=== PATIENT | male | born 1970 | race African-American/Black ===

== ENCOUNTER 2022-10-30 14:28 | Inpatient (IN) | payer MEDICAID, OTHER ==
[~2022-10-30] VITALS: Ht 177.8 cm; Wt 99.3 kg
[2022-10-30] MEDS ORDERED: INSULIN LISPRO (HUMAN) 100 UNITS/ML ML SC ONE (15:00)
[2022-10-30] MEDS ORDERED: CLOPIDOGREL BISULFATE 75 MG TAB PO ONE (15:15)
[2022-10-30 15:20] LABS: Basophils # (auto) 0 10 ^3/uL (0-0.2); Basophils % (auto) 0.6 % (0.0-2.0); Eosinophils # (auto) 0.1 10 ^3/uL (0-0.8); Eosinophils % (auto) 1.5 % (0.0-7.0); Hematocrit 40.1 % (41.0-53.0); Lymphocytes # (auto) 1.8 10 ^3/uL (0.4-5.4); Mean Corpuscular Hemoglobin 28.1 pg (28.0-32.0); Mean Corpuscular Hgb Conc. 34.9 g/dL (32.0-36.0); Mean Corpuscular Volume 80.6 fL (80.0-100.0); Monocytes # (auto) 0.5 10 ^3/uL (0-1.3); Monocytes % (auto) 8.4 % (0.0-12.0); Neutrophils # (auto) 3.9 10 ^3/uL (1.6-8.6); Neutrophils % (auto) 61.5 % (37.0-80.0); Nucleated Red Blood Cells % 0.1 %; Red Blood Cells 4.97 10^6/uL (4.5-5.90); Red Cell Distribution Width 12.4 % (11.8-14.3); White Blood Cell 6.4 10^3/uL (4.4-10.8)
[2022-10-30] MEDS ORDERED: ACETAMINOPHEN 325 MG TAB PO PRN (16:30)
[2022-10-30] MEDS ORDERED: THIAMINE HCL 100 MG TAB PO ONE (16:30)
[2022-10-30] MEDS ORDERED: DEXTROSE (50%) 50ML SYRG IV PRN (16:30)
[2022-10-30] MEDS ORDERED: B-COMPLEX W/ C & FOLIC ACID(NEPHROVITE TAB) PO ONE (16:30)
[2022-10-30 16:39] LABS: Cholesterol 276 mg/dL (< 200)
[2022-10-30 16:42] LABS: HDL Cholesterol 41 mg/dL (40-59); LDL Cholesterol 187 mg/dL (< 100); Triglycerides 183 mg/dL (< 150)
[2022-10-30 17:25] LABS: INR 0.97 (0.9-1.15)
[2022-10-30 17:55] LABS: Alanine Aminotransferase 24 U/L (16-61); Alkaline Phosphatase 69 U/L (45-117); Anion Gap 8 (5-15); Aspartate Aminotransferase 11 U/L (15-37); BUN/Creatinine Ratio 11.9; Bilirubin, Total 0.5 mg/dL (0.2-1.0); Blood Urea Nitrogen 18 mg/dL (7-18); Calcium 9.1 mg/dL (8.5-10.1); Carbon Dioxide 28 mmol/L (21-32); Chloride 97 mmol/L (98-107); GFR African American 63 mL/min; GFR Non-African American 52 mL/min; Potassium 4.1 mmol/L (3.5-5.1); Sodium 133 mmol/L (136-145)
[2022-10-30 17:56] LABS: Albumin 3.8 g/dL (3.4-5.0); Total Protein 7.3 g/dL (6.4-8.2)
[2022-10-30 17:58] LABS: Glucose 466 mg/dL (74-106)
[2022-10-30] MEDS: SODIUM CHLORIDE 0.9% 1,000 ML IV SCH (18:25)
[2022-10-30] MEDS: InsuLIN REG 1unit/0.01ml Soln (100units/ml) SC SCH ×2 (18:34→21:36)
[2022-10-30] MEDS: ACCU-CHEK COMFORT CURVE STRIP VI SCH ×2 (18:35→21:32)
[2022-10-30 22:00] VITALS: BP 157/83
[2022-10-31 00:11] VITALS: BP 157/83
[2022-10-31] MEDS ORDERED: METF-370 PO (00:48)
[2022-10-31 05:00] VITALS: BP 131/62
[2022-10-31] MEDS: ACCU-CHEK COMFORT CURVE STRIP VI SCH ×4 (06:24→21:52)
[2022-10-31] MEDS: InsuLIN REG 1unit/0.01ml Soln (100units/ml) SC SCH ×4 (06:25→21:54)
[2022-10-31] MEDS: SODIUM CHLORIDE 0.9% 1,000 ML IV SCH (06:48)
[2022-10-31 07:06] LABS: Basophils # (auto) 0 10 ^3/uL (0-0.2); Basophils % (auto) 0.3 % (0.0-2.0); Eosinophils # (auto) 0.1 10 ^3/uL (0-0.8); Eosinophils % (auto) 1.1 % (0.0-7.0); Hematocrit 39.8 % (41.0-53.0); Hemoglobin 13.8 g/dL (13.5-17.5); Lymphocytes # (auto) 1.7 10 ^3/uL (0.4-5.4); Lymphocytes % (auto) 30.3 % (10.0-50.0); Mean Corpuscular Hemoglobin 27.8 pg (28.0-32.0); Mean Corpuscular Hgb Conc. 34.6 g/dL (32.0-36.0); Mean Corpuscular Volume 80.4 fL (80.0-100.0); Monocytes # (auto) 0.5 10 ^3/uL (0-1.3); Monocytes % (auto) 8.5 % (0.0-12.0); Neutrophils # (auto) 3.3 10 ^3/uL (1.6-8.6); Neutrophils % (auto) 59.8 % (37.0-80.0); Red Blood Cells 4.95 10^6/uL (4.5-5.90); Red Cell Distribution Width 12.4 % (11.8-14.3); White Blood Cell 5.5 10^3/uL (4.4-10.8)
[2022-10-31 08:14] LABS: Albumin 3.6 g/dL (3.4-5.0); Calcium 9.1 mg/dL (8.5-10.1); Magnesium 1.8 mg/dL (1.6-2.6); Potassium 3.4 mmol/L (3.5-5.1)
[2022-10-31 08:18] LABS: BUN/Creatinine Ratio 13.7; Bilirubin, Total 0.6 mg/dL (0.2-1.0)
[2022-10-31 08:23] LABS: Folate (Folic Acid) > 24.00 ng/mL (5.38-24)
[2022-10-31 09:00] VITALS: BP 161/80
[2022-10-31] MEDS ORDERED: CLOPIDOGREL BISULFATE 75 MG TAB PO SCH (10:00)
[2022-10-31] MEDS ORDERED: ENOXAPARIN SOD 40 MG/0.4 ML SYRINGE SC SCH (10:00)
[2022-10-31] MEDS: B-COMPLEX W/ C & FOLIC ACID(NEPHROVITE TAB) PO SCH (10:15)
[2022-10-31] MEDS: ASPirin 81 mg TAB PO SCH (10:15)
[2022-10-31] MEDS: THIAMINE HCL 100 MG TAB PO SCH (10:15)
[2022-10-31 13:00] VITALS: BP 146/86
[2022-10-31] MEDS ORDERED: ERGOCALCIFEROL 50,000 UNIT(1.25MG) CAP PO SCH (13:00)
[2022-10-31] MEDS ORDERED: CYANOCOBALAMIN (B-12) 1000 MCG/1 ML VIAL IM ONE (13:00)
[2022-10-31] MEDS ORDERED: INSULIN LANTUS (GLARGINE) 1 /0.01ml (100units/ml) SC ONE (13:00)
[2022-10-31] MEDS ORDERED: LISINOPRIL 10 MG TAB PO ONE (13:00)
[2022-10-31 13:49] LABS: Urine Bacteria NONE SEEN /hpf (None Seen); Urine Blood Negative /uL (Negative); Urine Specific Gravity 1.019 (1.001-1.035); Urine WBC 1 /hpf (0 - 3)
[2022-10-31 15:24] LABS: Alcohol, Urine < 3.0 mg/dL (0-10); Amphetamine Screen, Urine NEGATIVE (NEGATIVE); Barbiturate Scree,Urine NEGATIVE (NEGATIVE); Benzodiazephine Screen, Urine NEGATIVE (NEGATIVE); Cannabinoid Screen, Urine NEGATIVE (NEGATIVE); Cocaine Screen, Urine NEGATIVE (NEGATIVE); Opiate Scree,Urine NEGATIVE (NEGATIVE); Phencyclidine Screen, Urine NEGATIVE (NEGATIVE)
[2022-10-31 17:00] VITALS: BP 164/88
[2022-10-31] MEDS: ATORVASTATIN 20 MG TAB PO SCH (21:52)
[2022-10-31 22:00] VITALS: BP 158/78
[2022-11-01 05:00] VITALS: BP 132/89
[2022-11-01 06:09] LABS: Basophils # (auto) 0 10 ^3/uL (0-0.2); Basophils % (auto) 0.3 % (0.0-2.0); Eosinophils # (auto) 0.1 10 ^3/uL (0-0.8); Eosinophils % (auto) 1.8 % (0.0-7.0); Hemoglobin 13.6 g/dL (13.5-17.5); Lymphocytes # (auto) 2.2 10 ^3/uL (0.4-5.4); Lymphocytes % (auto) 39.5 % (10.0-50.0); Mean Corpuscular Hgb Conc. 34.8 g/dL (32.0-36.0); Mean Corpuscular Volume 80.3 fL (80.0-100.0); Monocytes # (auto) 0.6 10 ^3/uL (0-1.3); Monocytes % (auto) 10.7 % (0.0-12.0); Neutrophils # (auto) 2.7 10 ^3/uL (1.6-8.6); Neutrophils % (auto) 47.7 % (37.0-80.0); Nucleated Red Blood Cells % 0.1 %; Red Blood Cells 4.86 10^6/uL (4.5-5.90); Red Cell Distribution Width 12.6 % (11.8-14.3); White Blood Cell 5.6 10^3/uL (4.4-10.8)
[2022-11-01] MEDS: INSULIN LANTUS (GLARGINE) 1 /0.01ml (100units/ml) SC SCH (06:33)
[2022-11-01] MEDS: ACCU-CHEK COMFORT CURVE STRIP VI SCH ×4 (06:34→21:45)
[2022-11-01] MEDS: InsuLIN REG 1unit/0.01ml Soln (100units/ml) SC SCH ×4 (06:38→21:47)
[2022-11-01 06:49] LABS: Albumin 3.4 g/dL (3.4-5.0); BUN/Creatinine Ratio 15.1; Bilirubin, Total 0.5 mg/dL (0.2-1.0); Calcium 9.2 mg/dL (8.5-10.1); Phosphorus 3.9 mg/dL (2.5-4.90); Potassium 3.5 mmol/L (3.5-5.1); Total Protein 6.7 g/dL (6.4-8.2)
[2022-11-01 08:00] VITALS: BP 144/81
[2022-11-01] MEDS: CYANOCOBALAMIN (B-12) 1000 MCG/1 ML VIAL IM SCH (10:20)
[2022-11-01] MEDS: ASPirin 81 mg TAB PO SCH (10:21)
[2022-11-01] MEDS: B-COMPLEX W/ C & FOLIC ACID(NEPHROVITE TAB) PO SCH (10:21)
[2022-11-01] MEDS: THIAMINE HCL 100 MG TAB PO SCH (10:21)
[2022-11-01] MEDS: LISINOPRIL 10 MG TAB PO SCH (10:22)
[2022-11-01 12:00] VITALS: BP 165/81
[2022-11-01] MEDS ORDERED: FOLI1TAB6 PO (12:55)
[2022-11-01] MEDS ORDERED: ATOR-47 PO (12:55)
[2022-11-01] MEDS ORDERED: ERGO1CAP23 PO (12:55)
[2022-11-01] MEDS ORDERED: MULT-1018 PO (12:55)
[2022-11-01] MEDS ORDERED: METF-929 PO (12:55)
[2022-11-01] MEDS ORDERED: CYAN-17 PO (12:55)
[2022-11-01] MEDS ORDERED: EMPA1TAB3 PO (12:55)
[2022-11-01] MEDS ORDERED: BLOO1KIT60 XX (12:55)
[2022-11-01] MEDS ORDERED: ALCOPAD63 XX (12:55)
[2022-11-01] MEDS ORDERED: BLOO-156 XX (12:55)
[2022-11-01] MEDS ORDERED: LANC-347 XX (12:55)
[2022-11-01] MEDS ORDERED: LISI-716 PO (12:55)
[2022-11-01] MEDS ORDERED: ASPI-325 PO (12:55)
[2022-11-01] MEDS ORDERED: CLOP75TA28 PO (12:55)
[2022-11-01] MEDS ORDERED: INSU1INJ19 SC (13:00)
[2022-11-01 16:00] VITALS: BP 125/75
[2022-11-01 20:00] VITALS: BP 133/83
[2022-11-01] MEDS: ATORVASTATIN 20 MG TAB PO SCH (21:44)
[2022-11-01 22:00] VITALS: BP 133/83
[2022-11-02 05:00] VITALS: BP 115/59
[2022-11-02] MEDS: ACCU-CHEK COMFORT CURVE STRIP VI SCH ×2 (06:52→12:21)
[2022-11-02] MEDS: INSULIN LANTUS (GLARGINE) 1 /0.01ml (100units/ml) SC SCH (06:53)
[2022-11-02] MEDS: InsuLIN REG 1unit/0.01ml Soln (100units/ml) SC SCH ×2 (06:53→12:55)
[2022-11-02 08:00] VITALS: BP 136/68
[2022-11-02] MEDS: LISINOPRIL 10 MG TAB PO SCH (10:07)
[2022-11-02] MEDS: THIAMINE HCL 100 MG TAB PO SCH (10:07)
[2022-11-02] MEDS: CYANOCOBALAMIN (B-12) 1000 MCG/1 ML VIAL IM SCH (10:08)
[2022-11-02] MEDS: B-COMPLEX W/ C & FOLIC ACID(NEPHROVITE TAB) PO SCH (10:08)
[2022-11-02] MEDS: ASPirin 81 mg TAB PO SCH (10:08)
[2022-11-02 12:00] VITALS: BP 151/84
[2022-11-02 13:29] VITALS: BP 136/68
== END 2022-11-02 14:45 | disposition home or self-care (01) | DRG 45 ==
LOC: ER 14:28 → OVERFLOW 16:30 → WEST WING 21:10
PROVIDERS: ADMIT Nurse Practitioner Family; ATTEND Internal Medicine
DX: I63.511 Cerebral infarction due to unspecified occlusion or stenosis of right middle cerebral artery (principal); E11.9 Type 2 diabetes mellitus without complications; E66.01 Morbid (severe) obesity due to excess calories; I10 Essential (primary) hypertension; E78.5 Hyperlipidemia, unspecified; E87.5 Hyperkalemia; F10.10 Alcohol abuse, uncomplicated; Z20.822 Contact with and (suspected) exposure to COVID-19; Z79.82 Long term (current) use of aspirin; Z79.899 Other long term (current) drug therapy; Z82.3 Family history of stroke; Z82.49 Family history of ischemic heart disease and other diseases of the circulatory system; Z83.3 Family history of diabetes mellitus; Z91.199 Patient's noncompliance with other medical treatment and regimen due to unspecified reason; Z68.31 Body mass index [BMI] 31.0-31.9, adult
CPT/HCPCS: 36415; 70450; 70545; 70551; 71046; 80053; 80061; 80307; 81001; 81241; 82010; 82043; 82140; 82306; 82607; 82746; 82962; 83036; 83735; 83880; 83930; 84100; 84443; 84484; 85025; 85301; 85302; 85303; 85305; 85306; 85610; 85613; 85670; 85705; 85732; 86147; 87426; 93306; 93886; 96372; 97116; 97163; 97530; G0378; J1815